=== PATIENT | female | born 1965 | race African-American/Black ===

== ENCOUNTER → 2022-01-22 11:19 | Outpatient (CLI) | payer OTHER, SELFPAY ==
--- NOTE | 2022-01-22 | DI.CT.S_ITS ---
PROCEDURE: CT LE RT W CON INDICATIONS: RIGHT KNEE PAIN TECHNIQUE: After the administration of intravenous contrast, 3 mm axial sections acquired of the knee, with coronal and sagittal reformats. COMPARISON: None. FINDINGS: Image quality: Excellent. Bones: No acute osseous fracture. Tricompartmental marginal osteophytes are present. Moderate joint space narrowing is seen at the patellofemoral compartment with subchondral cystic changes. Mild medial and lateral femorotibial compartment joint space narrowing. Soft tissues: No significant joint effusion. The articular cartilages, menisci, ligaments, and tendons are not well evaluated standard CT. The musculature surrounding the knee is normal in bulk. An oval soft tissue density nodule measuring 1.9 x 1.1 x 1.4 cm is seen in the posterior medial subcutaneous tissues with small internal calcified foci. IMPRESSION: 1. Oval partially calcified soft tissue mass measuring up to 1.9 cm at the posterior medial aspect of the knee in the subcutaneous soft tissues. Differential considerations include benign and malignant etiologies. Recommend MRI of the knee with without contrast for further evaluation. 2. Mild to moderate tricompartmental osteoarthrosis. Dictated by: Dillon Kidd M.D. on 01/22/2022 at 14:41 Approved by: Dillon Kidd M.D. on 01/22/2022 at 14:50
== END ==
PROVIDERS: PCP Family Medicine; Referring Provider Family Medicine; Visit Provider Family Medicine
DX: M25.561 Pain in right knee (principal); R22.41 Localized swelling, mass and lump, right lower limb; M17.11 Unilateral primary osteoarthritis, right knee
CPT/HCPCS: 73701; Q9967

== ENCOUNTER → 2022-01-30 15:47 | Outpatient (CLI) | payer OTHER, SELFPAY ==
--- NOTE | 2022-01-30 | DI.MRI.S_ITS ---
PROCEDURE: MR KNEE RT WO CON INDICATIONS: Localized swelling, mass and lump right kneeLocali TECHNIQUE: Noncontrast sagittal PD fast spin echo and T2 fast spin echo with fat saturation, sagittal 3-D FLASH with fat saturation; coronal T1 spin echo and PD fast spin echo with fat saturation, and axial PD fast spin echo with fat saturation through the knee. COMPARISON: None. FINDINGS: Image quality: Excellent. Menisci: There is peripheral displacement of medial meniscus bowing medial collateral ligament. Subtle signal abnormality involving posterior horn of medial meniscus is seen extending to superior articulating surface concerning for subtle oblique tear. subtle signal abnormality involving anterior horn of lateral meniscus is also seen extending to inferior articulating surface concerning for subtle oblique tear. The meniscal root ligaments appear intact. Cruciate ligaments: The anterior and posterior cruciate ligaments appear intact. Medial structures: Moderate grade medial collateral ligament sprain/partial-thickness tear is seen. The posterior oblique ligament, semimembranosus tendon insertions, oblique popliteal ligament, and meniscocapsular junction appear intact. Visualized portions of the pes anserinus tendons appear normal. No abnormal bursal fluid. Lateral structures: The lateral collateral ligament, long and short heads of the biceps femoris tendon appear intact. The popliteus tendon appears normal; the popliteofibular ligament appears intact. The posterosuperior and anteroinferior popliteomeniscal fascicles appear intact. The arcuate and fabellofibular ligaments appear intact, on either side of the lateral inferior geniculate artery. Iliotibial band appears normal. Anterior structures: Distal quadriceps tendinosis at its superior patellar insertion is noted. Patellar tendon is intact. Patellar alignment is normal. No femoral trochlear dysplasia or ventral trochlear prominence. No edema in the infrapatellar fat pad. Bones and cartilage: [id number] tricompartmental osteoarthritis and chondromalacia is seen more prominent in medial femoral tibial compartment and patellofemoral compartment near apex. Edema and subcortical cystic area involving anterior weight-bearing portion of lateral femoral condyle is seen suggestive of small osteochondral injury. No fracture or dislocation. Joint space: There is small to moderate amount of joint fluid. No Teixeira's cyst. Normal appearing synovial plicae are incidentally noted. IMPRESSION: 1. Suggestion of subtle oblique tear involving posterior horn of medial meniscus extending to inferior articulating surface. Suggestion of subtle oblique tear involving anterior horn of lateral meniscus extending to inferior articulating surface. 2. Cruciate ligaments are intact. Moderate grade MCL sprain/partial-thickness tear. 3. Distal quadriceps tendinosis at its superior patellar insertion. Patellar tendon is intact. 4. [id number] tricompartmental osteoarthritis and chondromalacia more prominent in medial femoral tibial compartment and patellofemoral compartment as above. No fracture or dislocation. Small to moderate amount of joint fluid, no gross loose bodies. Dictated by: Johnny Miramontes M.D. on 01/30/2022 at 16:57 Approved by: Johnny Miramontes M.D. on 01/30/2022 at 17:00
== END ==
PROVIDERS: PCP Family Medicine; Referring Provider Family Medicine; Visit Provider Family Medicine
DX: S83.411A Sprain of medial collateral ligament of right knee, initial encounter (principal); M17.11 Unilateral primary osteoarthritis, right knee; M22.41 Chondromalacia patellae, right knee; R22.41 Localized swelling, mass and lump, right lower limb
CPT/HCPCS: 73721